=== PATIENT | male | born 1990 | race Two or more races ===

== ENCOUNTER 2021-05-20 06:36 | Emergency (ER) | payer SELFPAY ==
[~2021-05-20] VITALS: Ht 175.3 cm; Wt 72.6 kg
[2021-05-20 07:31] VITALS: BP 148/98
[2021-05-20 07:36] LABS: Basophils # (auto) 0.1 10 ^3/uL (0-0.2); Basophils % (auto) 0.9 % (0.0-2.0); Eosinophils # (auto) 0.1 10 ^3/uL (0-0.8); Eosinophils % (auto) 0.7 % (0.0-7.0); Hematocrit 46.7 % (41.0-53.0); Hemoglobin 16.3 g/dL (13.5-17.5); Lymphocytes # (auto) 3.3 10 ^3/uL (0.4-5.4); Lymphocytes % (auto) 32.9 % (10.0-50.0); Mean Corpuscular Volume 94.5 fL (80.0-100.0); Monocytes # (auto) 0.8 10 ^3/uL (0-1.3); Monocytes % (auto) 7.9 % (0.0-12.0); Neutrophils # (auto) 5.7 10 ^3/uL (1.6-8.6); Neutrophils % (auto) 57.6 % (37.0-80.0); Nucleated Red Blood Cells % 0.1 %; Platelet Count (auto) 285 10^3/uL (140-450); Red Blood Cells 4.94 10^6/uL (4.5-5.90); Red Cell Distribution Width 13.3 % (11.8-14.3)
[2021-05-20 07:54] LABS: Alanine Aminotransferase 64 U/L (16-61); Albumin 4.3 g/dL (3.4-5.0); Anion Gap 4 (5-15); Aspartate Aminotransferase 17 U/L (15-37); BUN/Creatinine Ratio 14.4; Blood Urea Nitrogen 14 mg/dL (7-18); Calcium 9.2 mg/dL (8.5-10.1); Carbon Dioxide 28 mmol/L (21-32); Chloride 109 mmol/L (98-107); GFR African American 117 mL/min; GFR Non-African American 97 mL/min; Glucose 96 mg/dL (74-106); Potassium 4.3 mmol/L (3.5-5.1); Sodium 141 mmol/L (136-145)
[2021-05-20 07:59] LABS: Alkaline Phosphatase 92 U/L (45-117); Bilirubin, Total 0.3 mg/dL (0.2-1.0); Total Protein 8.7 g/dL (6.4-8.2)
[2021-05-20 08:21] LABS: Urine Bacteria NONE SEEN /hpf (None Seen); Urine Blood Negative /uL (Negative); Urine Specific Gravity 1.017 (1.001-1.035); Urine WBC <1 /hpf (0 - 3)
[2021-05-20 08:30] LABS: Alcohol, Urine < 3.0 mg/dL (0-10); Amphetamine Screen, Urine NEGATIVE (NEGATIVE); Barbiturate Scree,Urine NEGATIVE (NEGATIVE); Benzodiazephine Screen, Urine NEGATIVE (NEGATIVE); Cannabinoid Screen, Urine POSITIVE (NEGATIVE); Cocaine Screen, Urine NEGATIVE (NEGATIVE); Opiate Scree,Urine NEGATIVE (NEGATIVE); Phencyclidine Screen, Urine NEGATIVE (NEGATIVE)
== END 2021-05-20 09:11 | disposition home or self-care (01) ==
LOC: ER 06:36
DX: F41.9 Anxiety disorder, unspecified (principal); R44.0 Auditory hallucinations; L02.01 Cutaneous abscess of face; F17.210 Nicotine dependence, cigarettes, uncomplicated; F12.10 Cannabis abuse, uncomplicated
CPT/HCPCS: 36415; 71046; 80053; 80307; 81001; 84484; 85025; 85049; 93005

== ENCOUNTER 2021-06-02 18:15 | Emergency (ER) | payer MEDICAID ==
[~2021-06-02] VITALS: Ht 175.3 cm; Wt 72.6 kg
[2021-06-02] MEDS ORDERED: SODIUM CHLORIDE 0.9% 1,000 ML IV ONE (22:30)
[2021-06-02] MEDS ORDERED: CLINDAMYCIN 900MG IV 50 ML IV ONE (22:30)
[2021-06-02] MEDS ORDERED: ONDANSETRON HCL 4 MG/2 ML VIAL IV ONE (22:30)
[2021-06-02] MEDS ORDERED: MORPHINE SULF INJ 2 MG/ML SYRINGE 1ML IV ONE (22:30)
[2021-06-02] MEDS ORDERED: KETOROLAC TROMETH 30 MG/ML 1ML VIAL IV ONE (23:30)
[2021-06-03 00:50] VITALS: BP 136/95
== END 2021-06-03 00:51 | disposition home or self-care (01) ==
LOC: ER 18:15
DX: K02.9 Dental caries, unspecified (principal); F17.210 Nicotine dependence, cigarettes, uncomplicated
CPT/HCPCS: 70486; 96365; 96366; 96375; 99284; J1885; J2270; J2405; J3490; J7030

== ENCOUNTER 2021-07-21 15:39 | Emergency (ER) | payer MEDICAID ==
[~2021-07-21] VITALS: Ht 172.7 cm; Wt 77.1 kg
[2021-07-21 19:20] VITALS: BP 133/95
[2021-07-21] MEDS ORDERED: CLINDAMYCIN 900MG IV 50 ML IV ONE (20:00)
[2021-07-21] MEDS ORDERED: KETOROLAC TROMETH 60MG/2ML VIAL IM ONE (20:00)
[2021-07-21] MEDS ORDERED: SODIUM CHLORIDE 0.9% 500 ML IV ONE (20:00)
== END 2021-07-21 23:41 | disposition home or self-care (01) ==
LOC: ER 15:40
DX: K02.9 Dental caries, unspecified (principal); F17.210 Nicotine dependence, cigarettes, uncomplicated; F12.10 Cannabis abuse, uncomplicated
CPT/HCPCS: 70486; 96365; 96372; 99284; J1885; J3490; J7030

== ENCOUNTER 2022-07-22 09:34 | Emergency (ER) | payer MEDICAID ==
[~2022-07-22] VITALS: Ht 172.7 cm; Wt 82.3 kg
[2022-07-22 10:39] VITALS: BP 131/81
== END 2022-07-22 12:51 | disposition home or self-care (01) ==
LOC: ER 09:34
DX: S61.211A Laceration without foreign body of left index finger without damage to nail, initial encounter (principal); F17.210 Nicotine dependence, cigarettes, uncomplicated; W26.0XXA Contact with knife, initial encounter; Y93.89 Activity, other specified; Y92.89 Other specified places as the place of occurrence of the external cause; Y99.8 Other external cause status
CPT/HCPCS: 12001